=== PATIENT | female | born 1955 | race African-American/Black ===

== ENCOUNTER 2018-12-04 22:17 | Inpatient (IN) ==
[2018-12-04] MEDS ORDERED: NITROGLYCERIN 2% OINT 1 INCH/GM PACK TOP STA (22:55)
[2018-12-04] MEDS ORDERED: CARVEDILOL 3.125 MG TABLET PO STA (23:14)
[2018-12-04 23:19] LABS: Basophils # 0.1 10*3/uL (0.0-0.2); Basophils % 0.4 % (0.0-0.8); Eosinophils # 0.1 10*3/uL (0.0-0.87); Eosinophils % 1.1 % (0.00-10.9); Hematocrit 34.9 VOL% (35.7-47.0); Hemoglobin 10.9 GM/DL (12.0-16.0); Immature Granulocytes % 0.3 %; Immature Granulocytes Absolute 0.04 #; Lymphocytes # 2.8 10*3/uL (1.4-4.0); Lymphocytes % 24.4 % (21.3-54.2); Mean Corpuscular HGB Conc 31.2 GM/DL (32-36); Mean Corpuscular Volume 88.4 FL (87-102); Neutrophils % 65.8 % (38.7-73.9); Platelet Count 310 T/CUMM (130-400); Red Blood Count 3.95 MC/CUMM (3.8-5.5); Red Cell Distribution Width 14.8 % (9.3-17.3); White Blood Count 11.5 T/CUMM (4-12)
[2018-12-04 23:46] LABS: PT Patient Result 11.2 SECS
[2018-12-05] LABS: Calcium 9.2 MG/DL (8.5-10.1); Osmolality,Calculated 275.8 MOS/KG (273-304)
[2018-12-05] MEDS ORDERED: MAGNESIUM SULF RIDER 4 GM in PREMIX 1 EACH IV PRN (00:35)
[2018-12-05] MEDS ORDERED: MAGNESIUM SULF RIDER 2 GM in PREMIX 1 EACH IV PRN (00:35)
[2018-12-05] MEDS ORDERED: ENOXAPARIN 100 MG/ML SYRINGE SUBCUT STA (00:57)
[2018-12-05] MEDS: MORPHINE 4 MG/1 ML VIAL IV PRN ×2 (04:16→21:36)
[2018-12-05 05:58] LABS: Basophils % 0.3 % (0.0-0.8); Eosinophils % 0.4 % (0.00-10.9); Hematocrit 32.8 VOL% (35.7-47.0); Hemoglobin 10.4 GM/DL (12.0-16.0); Immature Granulocytes % 0.6 %; Immature Granulocytes Absolute 0.06 #; Lymphocytes # 2.1 10*3/uL (1.4-4.0); Lymphocytes % 20.4 % (21.3-54.2); Mean Corpuscular HGB Conc 31.7 GM/DL (32-36); Mean Corpuscular Volume 88.4 FL (87-102); Mean Platelet Volume 11.4 FL (9.6-12.0); Monocytes % 7.8 % (1.7-12.7); Neutrophils % 70.5 % (38.7-73.9); Platelet Count 303 T/CUMM (130-400); Red Blood Count 3.71 MC/CUMM (3.8-5.5); Red Cell Distribution Width 14.9 % (9.3-17.3); White Blood Count 10.2 T/CUMM (4-12)
[2018-12-05] MEDS ORDERED: CARVEDILOL 3.125 MG TABLET PO SCH (06:00)
[2018-12-05 06:12] LABS: Calcium 8.8 MG/DL (8.5-10.1); Osmolality,Calculated 277.8 MOS/KG (273-304)
[2018-12-05] MEDS ORDERED: VALSARTAN 80 MG TABLET PO SCH (09:00)
[2018-12-05] MEDS: ASPIRIN 325 MG TABLET PO SCH (10:07)
[2018-12-05] MEDS: CARVEDILOL 12.5 MG TABLET PO SCH ×3 (10:54→21:31)
[2018-12-06] MEDS: CARVEDILOL 12.5 MG TABLET PO SCH ×3 (05:23→20:55)
[2018-12-06 08:10] LABS: Basophils % 0.3 % (0.0-0.8); Eosinophils # 0.1 10*3/uL (0.0-0.87); Eosinophils % 1.1 % (0.00-10.9); Hematocrit 33.8 VOL% (35.7-47.0); Hemoglobin 10.4 GM/DL (12.0-16.0); Immature Granulocytes % 0.4 %; Immature Granulocytes Absolute 0.04 #; Lymphocytes # 2.1 10*3/uL (1.4-4.0); Lymphocytes % 22.9 % (21.3-54.2); Mean Corpuscular HGB Conc 30.8 GM/DL (32-36); Mean Corpuscular Volume 89.2 FL (87-102); Mean Platelet Volume 10.8 FL (9.6-12.0); Monocytes % 8.1 % (1.7-12.7); Neutrophils % 67.2 % (38.7-73.9); Platelet Count 278 T/CUMM (130-400); Red Blood Count 3.79 MC/CUMM (3.8-5.5); Red Cell Distribution Width 15.1 % (9.3-17.3); White Blood Count 9.3 T/CUMM (4-12)
[2018-12-06 08:39] LABS: Calcium 8.7 MG/DL (8.5-10.1); Osmolality,Calculated 280.7 MOS/KG (273-304)
[2018-12-06] MEDS ORDERED: VALSARTAN 80 MG TABLET PO SCH (09:00)
[2018-12-06] MEDS: ASPIRIN 325 MG TABLET PO SCH (09:56)
[2018-12-06] MEDS ORDERED: DEXTROSE 50% 25 GM/50 ML SYRINGE IV PRN ×2 (10:50→12:12)
[2018-12-06] MEDS ORDERED: GLUCAGON 1 MG VIAL IM PRN ×2 (10:50→12:12)
[2018-12-06] MEDS: metFORMIN 500 MG TABLET PO SCH ×2 (11:34→20:55)
[2018-12-06] MEDS: RANOLAZINE 500 MG TABLET PO SCH ×2 (11:34→20:55)
[2018-12-06] MEDS: INSULIN REGULAR 100 UNIT/ML SUBCUT SCH ×6 (11:34→21:23)
[2018-12-06] MEDS: GABAPENTIN 300 MG CAPSULE PO SCH ×2 (16:39→20:55)
[2018-12-06] MEDS: POTASSIUM CHLORIDE 20 MEQ TABLET PO SCH ×2 (16:39→20:55)
[2018-12-06] MEDS: FUROSEMIDE 80 MG TABLET PO SCH (16:39)
[2018-12-06] MEDS: MAGNESIUM CHLORIDE 64 MG TABLET PO SCH ×2 (16:40→20:55)
[2018-12-06] MEDS: WARFARIN 10 MG TABLET PO SCH (17:42)
[2018-12-06] MEDS: ROSUVASTATIN 20 MG TABLET PO SCH (20:54)
[2018-12-06] MEDS: SPIRONOLACTONE 50 MG TABLET PO SCH (20:54)
[2018-12-06] MEDS: ASCORBIC ACID 500 MG TABLET PO SCH (20:55)
[2018-12-06] MEDS: TOPIRAMATE 25 MG TABLET PO SCH (20:57)
[2018-12-06] MEDS: MORPHINE 4 MG/1 ML VIAL IV PRN (21:20)
[2018-12-07 05:40] LABS: INR 0.9; PT Patient Result 10.3 SECS
[2018-12-07 05:55] LABS: Calcium 8.8 MG/DL (8.5-10.1); Osmolality,Calculated 279.1 MOS/KG (273-304)
[2018-12-07] MEDS: PANTOPRAZOLE 20 MG TABLET PO SCH (08:52)
[2018-12-07] MEDS: LEVOTHYROXINE 50 MCG TABLET PO SCH (08:52)
[2018-12-07] MEDS: ASPIRIN 325 MG TABLET PO SCH (08:52)
[2018-12-07] MEDS: SPIRONOLACTONE 50 MG TABLET PO SCH ×2 (08:52→22:02)
[2018-12-07] MEDS: metFORMIN 500 MG TABLET PO SCH ×2 (08:52→22:03)
[2018-12-07] MEDS: FUROSEMIDE 80 MG TABLET PO SCH ×2 (08:53→15:53)
[2018-12-07] MEDS: GABAPENTIN 300 MG CAPSULE PO SCH ×3 (08:53→22:12)
[2018-12-07] MEDS: RANOLAZINE 500 MG TABLET PO SCH ×2 (08:53→22:03)
[2018-12-07] MEDS: TOPIRAMATE 25 MG TABLET PO SCH ×2 (08:53→22:05)
[2018-12-07] MEDS: CARVEDILOL 12.5 MG TABLET PO SCH ×2 (08:54→22:02)
[2018-12-07] MEDS: ASCORBIC ACID 500 MG TABLET PO SCH ×2 (08:54→22:04)
[2018-12-07] MEDS: LOSARTAN 50 MG TABLET PO SCH (08:54)
[2018-12-07] MEDS: MAGNESIUM CHLORIDE 64 MG TABLET PO SCH ×3 (08:54→22:04)
[2018-12-07] MEDS: INSULIN REGULAR 100 UNIT/ML SUBCUT SCH ×4 (08:55→22:07)
[2018-12-07] MEDS: POTASSIUM CHLORIDE 20 MEQ TABLET PO SCH ×3 (08:55→22:04)
[2018-12-07] MEDS ORDERED: SPIRONOLACTONE 50 MG TABLET PO SCH (09:00)
[2018-12-07] MEDS: MORPHINE 4 MG/1 ML VIAL IV PRN (09:20)
[2018-12-07] MEDS: WARFARIN 10 MG TABLET PO SCH (17:21)
[2018-12-07] MEDS: ROSUVASTATIN 20 MG TABLET PO SCH (22:02)
[2018-12-08 04:54] LABS: INR 1.1; PT Patient Result 11.4 SECS
[2018-12-08 05:18] LABS: Calcium 9.1 MG/DL (8.5-10.1); Osmolality,Calculated 274.2 MOS/KG (273-304)
[2018-12-08] MEDS: PANTOPRAZOLE 20 MG TABLET PO SCH (08:38)
[2018-12-08] MEDS: ASPIRIN 325 MG TABLET PO SCH (08:38)
[2018-12-08] MEDS: GABAPENTIN 300 MG CAPSULE PO SCH ×3 (08:38→21:40)
[2018-12-08] MEDS: RANOLAZINE 500 MG TABLET PO SCH ×2 (08:38→21:40)
[2018-12-08] MEDS: INSULIN REGULAR 100 UNIT/ML SUBCUT SCH ×4 (08:38→23:19)
[2018-12-08] MEDS: metFORMIN 500 MG TABLET PO SCH ×2 (08:39→21:40)
[2018-12-08] MEDS: LEVOTHYROXINE 50 MCG TABLET PO SCH (08:39)
[2018-12-08] MEDS: POTASSIUM CHLORIDE 20 MEQ TABLET PO SCH ×3 (08:39→21:40)
[2018-12-08] MEDS: ASCORBIC ACID 500 MG TABLET PO SCH ×2 (08:39→21:41)
[2018-12-08] MEDS: MAGNESIUM CHLORIDE 64 MG TABLET PO SCH ×3 (08:39→21:40)
[2018-12-08] MEDS: ACETAMINOPHEN 325 MG TABLET PO PRN (08:39)
[2018-12-08] MEDS: TOPIRAMATE 25 MG TABLET PO SCH ×2 (08:39→21:41)
[2018-12-08] MEDS: CARVEDILOL 12.5 MG TABLET PO SCH ×2 (10:30→21:40)
[2018-12-08] MEDS: LOSARTAN 50 MG TABLET PO SCH (12:27)
[2018-12-08] MEDS: SPIRONOLACTONE 50 MG TABLET PO SCH (12:27)
[2018-12-08] MEDS: FUROSEMIDE 80 MG TABLET PO SCH ×2 (12:27→16:51)
[2018-12-08] MEDS: WARFARIN 10 MG TABLET PO SCH (17:03)
[2018-12-08] MEDS: ROSUVASTATIN 20 MG TABLET PO SCH (21:40)
[2018-12-08] MEDS: SPIRONOLACTONE 25 MG TABLET PO SCH (21:40)
[2018-12-09] MEDS: ACETAMINOPHEN 325 MG TABLET PO PRN ×2 (00:30→12:40)
[2018-12-09] MEDS: MORPHINE 4 MG/1 ML VIAL IV PRN (01:15)
[2018-12-09 04:58] LABS: INR 1.3; PT Patient Result 14.1 SECS
[2018-12-09 05:15] LABS: Calcium 9.1 MG/DL (8.5-10.1); Osmolality,Calculated 279.8 MOS/KG (273-304)
[2018-12-09] MEDS ORDERED: TUBERCULIN SKIN TEST 0.1 ML SYRINGE INTRADERM ONE (07:53)
[2018-12-09] MEDS: INSULIN REGULAR 100 UNIT/ML SUBCUT SCH ×4 (08:59→21:17)
[2018-12-09] MEDS: GABAPENTIN 300 MG CAPSULE PO SCH ×3 (09:00→21:17)
[2018-12-09] MEDS: RANOLAZINE 500 MG TABLET PO SCH ×2 (09:00→21:16)
[2018-12-09] MEDS: MAGNESIUM CHLORIDE 64 MG TABLET PO SCH ×3 (09:00→21:16)
[2018-12-09] MEDS: FUROSEMIDE 80 MG TABLET PO SCH ×2 (09:00→16:48)
[2018-12-09] MEDS: PANTOPRAZOLE 20 MG TABLET PO SCH (09:00)
[2018-12-09] MEDS: POTASSIUM CHLORIDE 20 MEQ TABLET PO SCH ×3 (09:00→21:16)
[2018-12-09] MEDS: metFORMIN 500 MG TABLET PO SCH ×2 (09:00→21:16)
[2018-12-09] MEDS: SPIRONOLACTONE 25 MG TABLET PO SCH ×2 (09:00→21:16)
[2018-12-09] MEDS: LOSARTAN 25 MG TABLET PO SCH (09:00)
[2018-12-09] MEDS: CARVEDILOL 12.5 MG TABLET PO SCH ×2 (09:00→21:16)
[2018-12-09] MEDS: TOPIRAMATE 25 MG TABLET PO SCH ×2 (09:01→21:16)
[2018-12-09] MEDS: ASCORBIC ACID 500 MG TABLET PO SCH ×2 (09:01→21:17)
[2018-12-09] MEDS: LEVOTHYROXINE 50 MCG TABLET PO SCH (09:01)
[2018-12-09] MEDS: APIXABAN 5 MG TABLET PO SCH ×2 (09:30→21:17)
[2018-12-09] MEDS: ASPIRIN 325 MG TABLET PO SCH (09:33)
[2018-12-09] MEDS: ROSUVASTATIN 20 MG TABLET PO SCH (21:16)
[2018-12-10] MEDS: MORPHINE 4 MG/1 ML VIAL IV PRN (03:38)
[2018-12-10 08:39] VITALS: BP 104/64
[2018-12-10] MEDS ORDERED: ASPIRIN EC 81 MG TABLET PO SCH (09:00)
[2018-12-10] MEDS: INSULIN REGULAR 100 UNIT/ML SUBCUT SCH ×2 (09:26→11:40)
[2018-12-10] MEDS: MAGNESIUM CHLORIDE 64 MG TABLET PO SCH (09:30)
[2018-12-10] MEDS: LEVOTHYROXINE 50 MCG TABLET PO SCH (09:30)
[2018-12-10] MEDS: RANOLAZINE 500 MG TABLET PO SCH (09:30)
[2018-12-10] MEDS: PANTOPRAZOLE 20 MG TABLET PO SCH (09:30)
[2018-12-10] MEDS: TOPIRAMATE 25 MG TABLET PO SCH (09:30)
[2018-12-10] MEDS: CARVEDILOL 12.5 MG TABLET PO SCH (09:30)
[2018-12-10] MEDS: LOSARTAN 25 MG TABLET PO SCH (09:30)
[2018-12-10] MEDS: metFORMIN 500 MG TABLET PO SCH (09:30)
[2018-12-10] MEDS: FUROSEMIDE 80 MG TABLET PO SCH (09:31)
[2018-12-10] MEDS: ASCORBIC ACID 500 MG TABLET PO SCH (09:31)
[2018-12-10] MEDS: GABAPENTIN 300 MG CAPSULE PO SCH (09:31)
[2018-12-10] MEDS: SPIRONOLACTONE 25 MG TABLET PO SCH (09:31)
[2018-12-10] MEDS: POTASSIUM CHLORIDE 20 MEQ TABLET PO SCH (09:31)
[2018-12-10] MEDS: APIXABAN 5 MG TABLET PO SCH (09:31)
[2018-12-10 10:39] LABS: Basophils % 0.5 % (0.0-0.8); Eosinophils # 0.2 10*3/uL (0.0-0.87); Eosinophils % 2.7 % (0.00-10.9); Hemoglobin 10.7 GM/DL (12.0-16.0); Immature Granulocytes % 0.5 %; Immature Granulocytes Absolute 0.03 #; Lymphocytes # 2.1 10*3/uL (1.4-4.0); Lymphocytes % 30.9 % (21.3-54.2); Mean Corpuscular HGB Conc 30.6 GM/DL (32-36); Mean Corpuscular Volume 89.1 FL (87-102); Monocytes % 7.4 % (1.7-12.7); Platelet Count 326 T/CUMM (130-400); Red Blood Count 3.93 MC/CUMM (3.8-5.5); Red Cell Distribution Width 14.6 % (9.3-17.3); White Blood Count 6.6 T/CUMM (4-12)
[2018-12-10 11:18] LABS: Calcium 9.2 MG/DL (8.5-10.1); Osmolality,Calculated 273.2 MOS/KG (273-304)
== END 2018-12-10 14:45 | disposition swing bed (61) | DRG 281 ==
LOC: N.ED 22:17 → N.EDINP 12-05 00:35 → N.CC 12-05 01:28 → N.TELEN 12-06 12:03
PROVIDERS: ADMIT Internal Medicine Cardiovascular Disease; ATTEND Internal Medicine Cardiovascular Disease